=== PATIENT | male | born 1960 | race Caucasian/White ===

== ENCOUNTER 2017-03-22 10:26 | Emergency (ER) | payer OTHER ==
[2017-03-22 10:34] VITALS: BP 102/55
--- NOTE | 2017-03-22 10:46 | ER Document Report ---
ED Medical Screen (RME) - General Chief Complaint: Weakness Stated Complaint: WEAKNESS Time Seen by Provider: 03/22/17 10:39 Mode of Arrival: Ambulatory Notes: 56-year-old male presents to ED for weakness and lightheadedness head in the crowd Wednesday through the weekend. He said he was soaking wet on Wednesday and proximal Wednesday intermittently weakness lightheaded and had started with hip pain that comes and goes. He went to urgent care this morning and they told him that he needed to come right over to the emergency room because his blood pressure was low the only history he has his kidney stone. I have greeted and performed a rapid initial assessment of this patient. A comprehensive ED assessment and evaluation of the patient, analysis of test results and completion of medical decision making process will be conducted by an additional ED providers. TRAVEL OUTSIDE OF THE [place] IN LAST 30 DAYS: No - HPI Onset: Other Onset/Duration: Intermittent Quality of pain: Achy, Cramping Severity: Moderate Pain Level: 3 Associated Symptoms: Dizzy/lightheaded - Like it was in a crowd, Sweating - Wednesday and this weekend, Weakness, Other - Pain - Related Data Allergies/Adverse Reactions: No Known Allergies Allergy (Verified 03/22/17 10:30) Past Medical History - Past Medical History Cardiac Medical History: Reports: Hx Hypertension - MEDS Denies: Hx Heart Attack Pulmonary Medical History: Denies: Hx Asthma Neurological Medical History: Denies: Hx Cerebrovascular Accident, Hx Seizures Renal/ Medical History: Reports: Hx Kidney Stones. Denies: Hx Peritoneal Dialysis GI Medical History: Reports: Hx Hepatitis - HAS ANTIBODY, BUT NO HEPATITIS, Hx Ulcer - BLEEDING ULCERS YRS AGO 20 YRS AGO. Denies: Hx Hiatal Hernia Musculoskeltal Medical History: Reports Hx Arthritis, Reports Hx Musculoskeletal Deformity, Reports Hx Musculoskeletal Trauma Traumatic Medical History: Reports: Hx Fractures Infectious Medical History: Reports: Hx Hepatitis - HAS ANTIBODY, BUT NO HEPATITIS Past Surgical History: Denies: Hx Open Heart Surgery, Hx Pacemaker - Immunizations Immunizations up to date: Yes Hx Diphtheria, Pertussis, Tetanus Vaccination: Yes Physical Exam - Vital signs Vitals: Temp Pulse Resp BP Pulse Ox 97.2 F 87 20 102/55 L 94 03/22/17 10:30 03/22/17 10:30 03/22/17 10:30 03/22/17 10:30 03/22/17 10:30 Course - Vital Signs Vital signs: Temp Pulse Resp BP Pulse Ox 97.2 F 87 20 102/55 L 94 03/22/17 10:30 03/22/17 10:30 03/22/17 10:30 03/22/17 10:30 03/22/17 10:30
--- NOTE | 2017-03-22 11:51 | RADIOLOGY REPORT (SQ) ---
EXAM DESCRIPTION: CHEST PA/LAT COMPLETED DATE/TIME: 03/22/2017 11:41 am REASON FOR STUDY: weakness fatique light headed COMPARISON: None. TECHNIQUE: Frontal and lateral radiographic views of the chest acquired. NUMBER OF VIEWS: Two view. LIMITATIONS: None. FINDINGS: LUNGS AND PLEURA: No opacities, masses or pneumothorax. No pleural effusion. MEDIASTINUM AND HILAR STRUCTURES: No masses or contour abnormalities. HEART AND VASCULAR STRUCTURES: Heart normal size. No evidence for failure. BONES: No acute findings. HARDWARE: None in the chest. OTHER: No other significant finding. IMPRESSION: NO SIGNIFICANT RADIOGRAPHIC FINDING IN THE CHEST. TECHNICAL DOCUMENTATION: JOB ID: [id number] [employer]- All Rights Reserved
[2017-03-22 11:52] LABS: ABSOLUTE BASOPHILS # (AUTO) 0.1 10^3/uL (0.0-0.2); ABSOLUTE EOSINOPHILS # (AUTO) 0.3 10^3/uL (0.0-0.6); ABSOLUTE LYMPHOCYTES (AUTO) 0.9 10^3/uL (0.5-4.7); ABSOLUTE NEUT (AUTO) 5.3 10^3/uL (1.7-8.2); BASOPHILS % (AUTO) 1.3 % (0-2); EOSINOPHILS % (AUTO) 3.4 % (0-6); HEMATOCRIT 39.2 % (37.9-51.0); HEMOGLOBIN 13.3 g/dL (13.5-17.0); HGB HCT DIFFERENCE 0.7; MEAN CORPUSCULAR HEMOGLOBIN 37.6 pg (27.0-33.4); MEAN CORPUSCULAR HGB CONC 33.8 g/dL (32.0-36.0); MONOCYTES % (AUTO) 13.7 % (3-13); RED BLOOD COUNT 3.53 10^6/uL (4.35-5.55); RED CELL DISTRIBUTION WIDTH 14.2 % (11.5-14.0); SEGMENTED NEUTROPHILS % (AUTO) 69.6 % (42-78); WHITE BLOOD COUNT 7.6 10^3/uL (4.0-10.5)
[2017-03-22 11:53] LABS: APPEARANCE,URINE CLEAR; BILIRUBIN,URINE NEGATIVE (NEGATIVE); GLUCOSE, URINE >=500 mg/dL (NEGATIVE); KETONES,URINE NEGATIVE (NEGATIVE); LEUKOCYTE ESTERASE,URINE NEGATIVE (NEGATIVE); MEAN CORPUSCULAR VOLUME 111 fl (80-97); NITRITE,URINE NEGATIVE (NEGATIVE); PROTEIN,URINE NEGATIVE (NEGATIVE); URINE SPECIFIC GRAVITY 1.013; UROBILINOGEN,URINE NEGATIVE mg/dL (<2.0)
[2017-03-22 12:07] LABS: ALANINE AMINOTRANSFERASE 111 U/L (21-72); ALBUMIN 4.7 g/dL (3.5-5.0); ALKALINE PHOSPHATASE 74 U/L (38-126); ANION GAP 14 (5-19); ASPARTATE AMINO TRANSFERASE 146 U/L (17-59); BILIRUBIN,DIRECT 0.8 mg/dL (0.0-0.4); BILIRUBIN,TOTAL 0.8 mg/dL (0.2-1.3); BLOOD UREA NITROGEN 34 mg/dL (7-20); CALCIUM 9.7 mg/dL (8.4-10.2); CARBON DIOXIDE 29 mmol/L (22-30); CHLORIDE 96 mmol/L (98-107); CREATINE KINASE 103 U/L (55-170); CREATININE RESULT 1.43 mg/dL (0.52-1.25); GLUCOSE 106 mg/dL (75-110); POTASSIUM 5.8 mmol/L (3.6-5.0); SODIUM 138.5 mmol/L (137-145); TOTAL PROTEIN 7.8 g/dL (6.3-8.2)
[2017-03-22 12:14] LABS: ANISOCYTOSIS SLIGHT
[2017-03-22 12:19] LABS: CREATINE KINASE MB 0.61 ng/mL (<4.55); TROPONIN I < 0.012 ng/mL
[2017-03-22] MEDS: NORMAL SALINE 1000 ML 1,000 ML IV PRN ×2 (13:40→13:42)
--- NOTE | 2017-03-22 14:31 | EKG REPORT ---
SEVERITY:- ABNORMAL ECG - SINUS RHYTHM ABNRM R PROG, CONSIDER ASMI OR LEAD PLACEMENT : Confirmed by: Regina Olivas 22-Mar-2017 14:30:20
[2017-03-22 15:11] LABS: ANION GAP 13 (5-19); BLOOD UREA NITROGEN 32 mg/dL (7-20); CALCIUM 8.7 mg/dL (8.4-10.2); CARBON DIOXIDE 28 mmol/L (22-30); CHLORIDE 98 mmol/L (98-107); CREATININE RESULT 1.29 mg/dL (0.52-1.25); GLUCOSE 142 mg/dL (75-110); POTASSIUM 5.1 mmol/L (3.6-5.0); SODIUM 138.7 mmol/L (137-145)
--- NOTE | 2017-03-22 15:24 | ER Document Report ---
ED General - General Chief Complaint: Weakness Stated Complaint: WEAKNESS Time Seen by Provider: 03/22/17 10:39 Mode of Arrival: Ambulatory TRAVEL OUTSIDE OF THE [place] 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 Patient denies fevers chills nausea vomiting diarrhea - Related Data Allergies/Adverse Reactions: No Known Allergies Allergy (Verified 03/22/17 10:30) Past Medical History - Social History Smoking Status: Never Smoker Chew tobacco use (# tins/day): Yes Frequency of alcohol use: Heavy Drug Abuse: None Family History: Arthritis, Hypertension, Malignancy Patient has suicidal ideation: No Patient has homicidal ideation: No - Past Medical History Cardiac Medical History: Reports: Hx Hypertension - MEDS Denies: Hx Heart Attack Pulmonary Medical History: Denies: Hx Asthma Neurological Medical History: Denies: Hx Cerebrovascular Accident, Hx Seizures Renal/ Medical History: Reports: Hx Kidney Stones. Denies: Hx Peritoneal Dialysis GI Medical History: Reports: Hx Hepatitis - HAS ANTIBODY, BUT NO HEPATITIS, Hx Ulcer - BLEEDING ULCERS YRS AGO 20 YRS AGO. Denies: Hx Hiatal Hernia Musculoskeltal Medical History: Reports Hx Arthritis, Reports Hx Musculoskeletal Deformity, Reports Hx Musculoskeletal Trauma Traumatic Medical History: Reports: Hx Fractures Infectious Medical History: Reports: Hx Hepatitis - HAS ANTIBODY, BUT NO HEPATITIS Past Surgical History: Denies: Hx Open Heart Surgery, Hx Pacemaker - Immunizations Immunizations up to date: Yes Hx Diphtheria, Pertussis, Tetanus Vaccination: Yes Review of Systems - Review of Systems Constitutional: No symptoms reported EENT: No symptoms reported Cardiovascular: No symptoms reported Respiratory: No symptoms reported Gastrointestinal: No symptoms reported Genitourinary: No symptoms reported Male Genitourinary: No symptoms reported Musculoskeletal: No symptoms reported Skin: No symptoms reported Hematologic/Lymphatic: No symptoms reported Neurological/Psychological: No symptoms reported -: Yes All other systems reviewed and negative Physical Exam - Vital signs Vitals: Temp Pulse Resp BP Pulse Ox 97.2 F 87 20 102/55 L 94 03/22/17 10:30 03/22/17 10:30 03/22/17 10:30 03/22/17 10:30 03/22/17 10:30 Interpretation: Normal - General General appearance: Appears well, Alert - HEENT Head: Normocephalic, Atraumatic Eyes: Normal Pupils: PERRL - Respiratory Respiratory status: No respiratory distress Chest status: Nontender Breath sounds: Normal Chest palpation: Normal - Cardiovascular Rhythm: Regular Heart sounds: Normal auscultation Murmur: No - Abdominal Inspection: Normal Distension: No distension Bowel sounds: Normal Tenderness: Nontender Organomegaly: No organomegaly - Back Back: Normal, Nontender - Extremities General upper extremity: Normal inspection, Nontender, Normal color, Normal ROM , Normal temperature General lower extremity: Normal inspection, Nontender, Normal color, Normal ROM , Normal temperature, Normal weight bearing. No: Krista's sign - Neurological Neuro grossly intact: Yes Cognition: Normal Orientation: AAOx4 Amalia Coma Scale Eye Opening: Spontaneous Amalia Coma Scale Verbal: Oriented Amalia Coma Scale Motor: Obeys Commands Rah Coma Scale Total: 15 Speech: Normal Motor strength normal: LUE, RUE, LLE, RLE Sensory: Normal - Psychological Associated symptoms: Normal affect, Normal mood - Skin Skin Temperature: Warm Skin Moisture: Dry Skin Color: Normal Course - Re-evaluation Re-evalutation: 03/22/17 15:41 Initial laboratory studies that showed potassium of 5.8. Was given 2 L of fluid repeated of his chemistry panel with improvement of the patient's renal function and potassium. Patient was encouraged to continue to drink plenty of water patient will be discharged home follow-up primary care physician - Vital Signs Vital signs: Temp Pulse Resp BP Pulse Ox 97.2 F 87 16 102/55 L 94 03/22/17 10:30 03/22/17 10:30 03/22/17 13:34 03/22/17 10:30 03/22/17 10:30 - Laboratory Result Diagrams: 03/22/17 11:25 03/22/17 14:30 Laboratory results interpreted by me: 03/22/17 03/22/17 03/22/17 11:25 11:25 11:25 RBC 3.53 L Hgb 13.3 L MCV 111 H MCH 37.6 H RDW 14.2 H Plt Count 120 L Lymphocytes % 12.0 L Monocytes % 13.7 H Potassium 5.8 H Chloride 96 L BUN 34 H Creatinine 1.43 H Est GFR (Non-Af Amer) 51 L Glucose Direct Bilirubin 0.8 H AST 146 H ALT 111 H Urine Glucose (UA) >=500 H 03/22/17 14:30 RBC Hgb MCV MCH RDW Plt Count Lymphocytes % Monocytes % Potassium 5.1 H Chloride BUN 32 H Creatinine 1.29 H Est GFR (Non-Af Amer) 58 L Glucose 142 H Direct Bilirubin AST ALT Urine Glucose (UA) Discharge - Discharge Clinical Impression: Dehydration Condition: Good Disposition: HOME, SELF-CARE Instructions: Dehydration ([facility]) Additional Instructions: Today show elevated potassium and elevation in your kidney function tests more likely this is related to dehydration as better after 2 L of fluid may have improved. Please continue to drink plenty of water I would decrease the amount of Pedialyte that you are drinking and follow-up with your doctor in 1 week Forms: Return to Work Referrals: JOSE HICKMAN MD [Primary Care Provider] - Follow up in 1 week
[2017-03-23 12:09] LABS: PATH REVIEW PATHOLOGIST REVIEWED
== END 2017-03-22 16:07 | disposition home or self-care (01) ==
LOC: ER 10:26
DX: E86.0 Dehydration (principal); M25.552 Pain in left hip; Z72.0 Tobacco use; I10 Essential (primary) hypertension
CPT/HCPCS: 93005; 99285; 36415; 82553; 82550; 85025; 80048; 80053; 81001; 84484; 71020; 93010; J7030